=== PATIENT | male | born 1945 | race Caucasian/White ===

== ENCOUNTER 2019-02-15 05:24 | Inpatient (IN) | payer MEDICARE, OTHER ==
[~2019-02-15] VITALS: Ht 177.8 cm; Wt 69.4 kg
[2019-02-15] MEDS ORDERED: ACETAMINOPHEN 500 MG TABLET ONE (05:42)
[2019-02-15] MEDS ORDERED: ACETAMINOPHEN 500 MG TABLET PO ONE (06:00)
[2019-02-15] MEDS ORDERED: SODIUM CHLORIDE FLUSH 10ML SYR IVF ONE (06:30)
[2019-02-15 06:39] LABS: BASOPHILS # (AUTO) 0.02 x10^3/uL (0-0.1); BASOPHILS % (AUTO) 0 % (0-1); EOSINOPHILS % (AUTO) 2 % (1-7); LYMPHOCYTES # (AUTO) 0.72 x10^3/uL (1-3.4); LYMPHOCYTES % (AUTO) 13 % (22-44); MD NO; MEAN CORPUSCULAR HEMOGLOBIN 30.6 pg (27.5-34.5); MEAN CORPUSCULAR HGB CONC 33.3 g/dL (33.2-36.2); MEAN CORPUSCULAR VOLUME 91.8 fL (81-97); MEAN PLATELET VOLUME 7.7 fL (7.4-10.4); MONOCYTES # (AUTO) 0.38 x10^3/uL (0.2-0.8); MONOCYTES % (AUTO) 7 % (2-9); NEUTROPHILS # (AUTO) 4.17 x10^3/uL (1.8-6.8); NEUTROPHILS % (AUTO) 77 % (42-75); PLATELET COUNT 229 x10^3/uL (130-400); RED BLOOD COUNT 3.82 x10^6/uL (4.38-5.82); RED CELL DISTRIBUTION WIDTH 13.7 % (9.4-14.8)
[2019-02-15 06:52] LABS: ALANINE AMINOTRANSFERASE 22 U/L (12-78); ALBUMIN 3.5 g/dL (3.4-5.0); ANION GAP 4 mmol/L (5-15); CALCIUM 8.2 mg/dL (8.5-10.1); CHLORIDE 103 mmol/L (98-107); CREATININE 0.79 mg/dL (0.7-1.3)
[2019-02-15 06:54] LABS: ALKALINE PHOSPHATASE 61 U/L (45-117); BILIRUBIN,TOTAL 0.4 mg/dL (0.2-1.0); TOTAL PROTEIN 6.7 g/dL (6.4-8.2)
--- NOTE | 2019-02-15 07:04 | NUR ---
REC BS REPORT PT RESTING NADN IV ESTABLISHED VSS MONITORED
[2019-02-15] MEDS ORDERED: SODIUM CHLORIDE 0.9% 1,000 ML IV ONE (07:08)
[2019-02-15] MEDS ORDERED: ONDANSETRON 2MG/ML, 2ML IVPush PRN (07:30)
[2019-02-15] MEDS ORDERED: MORPHINE SULFATE 4 MG/ML, 1ML IVPush PRN (07:30)
[2019-02-15] MEDS ORDERED: SODIUM CHLORIDE FLUSH 10ML SYR IVF PRN (07:30)
--- NOTE | 2019-02-15 08:17 | NUR ---
REPORT CALLED TO THE FLOOR
[2019-02-15] MEDS: ENOXAPARIN 40 MG/0.4 ML SQ SCH (08:30)
[2019-02-15] MEDS ORDERED: OXYcodone IR 5MG TABLET PO PRN (08:30)
[2019-02-15] MEDS ORDERED: morphine SULFATE 10 MG/ML, 1ML IVPush PRN (08:30)
[2019-02-15 08:37] LABS: INTERNATIONAL NORMALIZED RATIO 0.99 (0.93-1.1); PROTHROMBIN TIME 10.4 Seconds (9.6-11.5)
[2019-02-15] MEDS: CALCIUM/VITAMIN D3 250-125 TABLET PO SCH ×2 (09:00→21:44)
[2019-02-15] MEDS: SENNA/DOCUSATE TABLET PO SCH (09:00)
[2019-02-15 09:11] VITALS: BP 159/81
[2019-02-15] MEDS: SODIUM CHLORIDE 0.9% 1,000 ML IV SCH ×2 (09:16→22:23)
[2019-02-15 14:00] VITALS: BP 128/68
[2019-02-15 14:07] LABS: MICROSCOPIC NOT IND
[2019-02-15 14:24] LABS: CULTURE INDICATED? NO
[2019-02-15 19:13] VITALS: BP 154/90
[2019-02-16 01:47] VITALS: BP 158/95
[2019-02-16] MEDS: ALENDRONATE 10 MG TABLET PO SCH (06:03)
[2019-02-16] MEDS ORDERED: FENTANYL PF 250 MCG/5ML ONE (07:56)
[2019-02-16 08:07] LABS: BASOPHILS # (AUTO) 0.02 x10^3/uL (0-0.1); BASOPHILS % (AUTO) 0 % (0-1); EOSINOPHILS % (AUTO) 0 % (1-7); LYMPHOCYTES # (AUTO) 0.71 x10^3/uL (1-3.4); LYMPHOCYTES % (AUTO) 10 % (22-44); MD NO; MEAN CORPUSCULAR HEMOGLOBIN 29.6 pg (27.5-34.5); MEAN CORPUSCULAR HGB CONC 32.4 g/dL (33.2-36.2); MEAN CORPUSCULAR VOLUME 91.3 fL (81-97); MEAN PLATELET VOLUME 7.9 fL (7.4-10.4); MONOCYTES # (AUTO) 0.67 x10^3/uL (0.2-0.8); MONOCYTES % (AUTO) 9 % (2-9); NEUTROPHILS # (AUTO) 5.85 x10^3/uL (1.8-6.8); NEUTROPHILS % (AUTO) 81 % (42-75); PLATELET COUNT 185 x10^3/uL (130-400); RED BLOOD COUNT 3.63 x10^6/uL (4.38-5.82); RED CELL DISTRIBUTION WIDTH 13.6 % (9.4-14.8)
[2019-02-16] MEDS ORDERED: ROCURONIUM 10MG/ML,5ML ONE (08:10)
[2019-02-16] MEDS ORDERED: PROPOFOL 10 MG/ML, 20ML ONE (08:10)
[2019-02-16] MEDS ORDERED: CEFAZOLIN 1,000 MG ONE (08:10)
[2019-02-16] MEDS ORDERED: PHENYLEPHRINE 10 MG/ML ONE (08:10)
[2019-02-16] MEDS ORDERED: GLYCOPYRROLATE 0.2MG/1ML, 5ML ONE (08:10)
[2019-02-16] MEDS ORDERED: NEOSTIGMINE 1 MG/ML, 10ML ONE (08:10)
[2019-02-16 08:18] LABS: CHLORIDE 105 mmol/L (98-107)
[2019-02-16 08:20] LABS: ANION GAP 5 mmol/L (5-15); CREATININE 0.68 mg/dL (0.7-1.3)
[2019-02-16] MEDS ORDERED: PROMETHAZINE 12.5 MG SUPP PR PRN (08:30)
[2019-02-16] MEDS ORDERED: MORPHINE SULFATE 4 MG/ML, 1ML IVPush PRN (08:30)
[2019-02-16] MEDS ORDERED: PROMETHAZINE 25 MG SUPP PR PRN (08:30)
[2019-02-16] MEDS ORDERED: MEPERIDINE/PF 25MG/0.5ML IVPush PRN (08:30)
[2019-02-16] MEDS ORDERED: hydrALAzine 20 MG/ML, 1ML IV PRN (08:30)
[2019-02-16] MEDS ORDERED: OXYcodone 5 MG/5 ML ORAL.SOL UDC PO PRN (08:30)
[2019-02-16] MEDS ORDERED: ONDANSETRON ODT 8 MG PO PRN (08:30)
[2019-02-16] MEDS ORDERED: PROMETHAZINE 25 MG/ML, 1ML IM PRN ×2 (08:30)
[2019-02-16] MEDS: ENOXAPARIN 40 MG/0.4 ML SQ SCH (08:30)
[2019-02-16] MEDS ORDERED: PROMETHAZINE 25 MG/ML, 1ML IV PRN (08:30)
[2019-02-16] MEDS ORDERED: HYDROmorphone 2 MG/ML, 1ML IVPush PRN ×2 (08:30→11:00)
[2019-02-16] MEDS ORDERED: LABETALOL 5MG/ML, 20ML IV PRN (08:30)
[2019-02-16] MEDS ORDERED: ONDANSETRON 2MG/ML, 2ML IV PRN ×2 (08:30→11:00)
[2019-02-16] MEDS: CALCIUM/VITAMIN D3 250-125 TABLET PO SCH ×2 (09:00→20:41)
[2019-02-16] MEDS: SENNA/DOCUSATE TABLET PO SCH (09:00)
[2019-02-16] MEDS ORDERED: ACETAMINOPHEN 650 MG/20.3 ML UDC ONE (09:12)
[2019-02-16] MEDS ORDERED: FENTANYL PF 100 MCG/2ML ONE (09:12)
[2019-02-16] MEDS ORDERED: OXYcodone 5 MG/5 ML ORAL.SOL UDC ONE (09:12)
[2019-02-16] MEDS: ACETAMINOPHEN 325 MG TABLET PO PRN ×2 (09:15→11:45)
[2019-02-16] MEDS: FENTANYL PF 100 MCG/2ML IV PRN ×3 (09:18→09:31)
[2019-02-16 10:14] VITALS: BP 138/76
[2019-02-16] MEDS ORDERED: HYDROcodone/APAP 5/325 TABLET PO PRN (11:00)
[2019-02-16] MEDS ORDERED: OXYcodone/APAP 5/325MG TABLET PO PRN (11:00)
[2019-02-16] MEDS: KETOROLAC 30 MG/1 ML IV SCH ×2 (11:45→20:41)
[2019-02-16] MEDS: CARVEDILOL 3.125 MG TABLET PO SCH ×2 (11:45→17:58)
[2019-02-16] MEDS ORDERED: morphine SULFATE 10 MG/ML, 1ML IVPush PRN (12:00)
[2019-02-16] MEDS: SODIUM CHLORIDE 0.9% 1,000 ML IV SCH (13:50)
[2019-02-16 14:04] VITALS: BP 134/70
[2019-02-16] MEDS: CEFAZOLIN PMX 1GM/50ML 50 ML IVPB SCH (17:03)
[2019-02-16 18:59] VITALS: BP 159/83
[2019-02-16] MEDS: DOCUSATE 100 MG CAPSULE PO SCH (20:41)
[2019-02-16] MEDS: SODIUM CHLORIDE FLUSH 10ML SYR IVF SCH (20:42)
[2019-02-17 00:04] VITALS: BP 141/75
[2019-02-17] MEDS: CEFAZOLIN PMX 1GM/50ML 50 ML IVPB SCH (00:37)
[2019-02-17 04:14] VITALS: BP 153/75
[2019-02-17] MEDS: KETOROLAC 30 MG/1 ML IV SCH (04:37)
[2019-02-17 05:20] LABS: BASOPHILS % (AUTO) 0 % (0-1); EOSINOPHILS # (AUTO) 0.01 x10^3/uL (0-0.4); EOSINOPHILS % (AUTO) 0 % (1-7); LYMPHOCYTES # (AUTO) 0.56 x10^3/uL (1-3.4); LYMPHOCYTES % (AUTO) 8 % (22-44); MD NO; MEAN CORPUSCULAR HGB CONC 32.8 g/dL (33.2-36.2); MEAN CORPUSCULAR VOLUME 91.6 fL (81-97); MEAN PLATELET VOLUME 8.4 fL (7.4-10.4); MONOCYTES # (AUTO) 0.94 x10^3/uL (0.2-0.8); MONOCYTES % (AUTO) 13 % (2-9); NEUTROPHILS # (AUTO) 5.94 x10^3/uL (1.8-6.8); NEUTROPHILS % (AUTO) 80 % (42-75); PLATELET COUNT 180 x10^3/uL (130-400); RED BLOOD COUNT 3.17 x10^6/uL (4.38-5.82); RED CELL DISTRIBUTION WIDTH 13.5 % (9.4-14.8)
[2019-02-17 05:28] LABS: ANION GAP 3 mmol/L (5-15); CALCIUM 7.9 mg/dL (8.5-10.1); CHLORIDE 104 mmol/L (98-107)
[2019-02-17 05:29] LABS: CREATININE 1.14 mg/dL (0.7-1.3)
[2019-02-17] MEDS: ALENDRONATE 10 MG TABLET PO SCH (06:28)
[2019-02-17] MEDS: ENOXAPARIN 40 MG/0.4 ML SQ SCH (06:28)
[2019-02-17] MEDS: CARVEDILOL 3.125 MG TABLET PO SCH ×2 (06:28→17:44)
[2019-02-17] MEDS: SODIUM CHLORIDE 0.9% 1,000 ML IV SCH (06:29)
[2019-02-17 07:08] VITALS: BP 122/71
[2019-02-17] MEDS: SODIUM CHLORIDE FLUSH 10ML SYR IVF SCH ×2 (09:21→21:35)
[2019-02-17] MEDS: CALCIUM/VITAMIN D3 250-125 TABLET PO SCH ×2 (09:22→21:35)
[2019-02-17] MEDS: SENNA/DOCUSATE TABLET PO SCH (09:22)
[2019-02-17] MEDS: DOCUSATE 100 MG CAPSULE PO SCH ×2 (09:22→21:35)
[2019-02-17 12:07] VITALS: BP 129/66
[2019-02-17 19:20] VITALS: BP 161/77
[2019-02-17 20:26] VITALS: BP 165/78
[2019-02-18 00:18] VITALS: BP 142/73
[2019-02-18 03:37] VITALS: BP 151/68
[2019-02-18] MEDS: ALENDRONATE 10 MG TABLET PO SCH (05:30)
[2019-02-18] MEDS: ENOXAPARIN 40 MG/0.4 ML SQ SCH (05:31)
[2019-02-18] MEDS: CARVEDILOL 3.125 MG TABLET PO SCH ×2 (05:31→18:14)
[2019-02-18 06:53] VITALS: BP 124/67
[2019-02-18] MEDS: CALCIUM/VITAMIN D3 250-125 TABLET PO SCH ×2 (09:49→21:35)
[2019-02-18] MEDS: ASPIRIN 81 MG TABLET CHEW PO SCH (09:49)
[2019-02-18] MEDS: SENNA/DOCUSATE TABLET PO SCH (09:49)
[2019-02-18] MEDS: DOCUSATE 100 MG CAPSULE PO SCH ×2 (09:49→21:00)
[2019-02-18] MEDS: SODIUM CHLORIDE FLUSH 10ML SYR IVF SCH ×2 (09:50→21:00)
[2019-02-18 13:08] VITALS: BP 109/65
[2019-02-18] MEDS: ACETAMINOPHEN 325 MG TABLET PO PRN (15:32)
[2019-02-18 18:13] VITALS: BP 132/65
[2019-02-18 19:16] VITALS: BP 110/55
[2019-02-18] MEDS: MAGNESIUM HYDROXIDE 8%, 30ML UDC PO SCH (21:00)
[2019-02-19 01:17] VITALS: BP 141/70
[2019-02-19] MEDS: ALENDRONATE 10 MG TABLET PO SCH (06:13)
[2019-02-19] MEDS: ENOXAPARIN 40 MG/0.4 ML SQ SCH (06:14)
[2019-02-19] MEDS: CARVEDILOL 3.125 MG TABLET PO SCH ×2 (06:14→18:09)
[2019-02-19 06:52] VITALS: BP 165/71
[2019-02-19] MEDS: SODIUM CHLORIDE FLUSH 10ML SYR IVF SCH ×2 (07:42→21:18)
[2019-02-19] MEDS: CALCIUM/VITAMIN D3 250-125 TABLET PO SCH ×2 (07:42→21:18)
[2019-02-19] MEDS: SENNA/DOCUSATE TABLET PO SCH (07:42)
[2019-02-19] MEDS: ASPIRIN 81 MG TABLET CHEW PO SCH (07:42)
[2019-02-19] MEDS: DOCUSATE 100 MG CAPSULE PO SCH ×2 (07:42→21:18)
[2019-02-19 13:19] VITALS: BP 118/52
[2019-02-19 18:23] VITALS: BP 126/68
[2019-02-19] MEDS: MAGNESIUM HYDROXIDE 8%, 30ML UDC PO SCH ×2 (21:18→21:30)
[2019-02-20 01:15] VITALS: BP 135/71
[2019-02-20] MEDS: CARVEDILOL 3.125 MG TABLET PO SCH ×2 (06:52→17:58)
[2019-02-20] MEDS: ALENDRONATE 10 MG TABLET PO SCH (06:52)
[2019-02-20] MEDS: ENOXAPARIN 40 MG/0.4 ML SQ SCH (06:52)
[2019-02-20 06:55] VITALS: BP 104/62
[2019-02-20] MEDS: DOCUSATE 100 MG CAPSULE PO SCH ×2 (09:23→21:12)
[2019-02-20] MEDS: ASPIRIN 81 MG TABLET CHEW PO SCH (09:23)
[2019-02-20] MEDS: CALCIUM/VITAMIN D3 250-125 TABLET PO SCH ×2 (09:23→21:12)
[2019-02-20] MEDS: SENNA/DOCUSATE TABLET PO SCH (09:27)
[2019-02-20] MEDS: SODIUM CHLORIDE FLUSH 10ML SYR IVF SCH ×2 (09:27→21:13)
--- NOTE | 2019-02-20 10:30 | NUR ---
NURSING ACTIVITY SHEET Reviewed the following activity sheet with patient and RN. 1. Up in chair at least 3x's a day for meals. 2. Seated and Supine B LE strengthening exercises as per exercise sheet including the following exercises: seated: marching, knee extension, ankle pumps, glut sets supine/reclined: ankle pumps, quad sets, glut sets, heel slides 3. Ambulate to and from restroom with nursing assist. Addendum: 02/20/19 at 1605 by RHODA ROSAS PTA Amended: Links added.
[2019-02-20 12:27] VITALS: BP 107/58
[2019-02-20 18:47] VITALS: BP 106/52
[2019-02-20] MEDS: MAGNESIUM HYDROXIDE 8%, 30ML UDC PO SCH (21:12)
[2019-02-21 02:14] VITALS: BP 134/66
[2019-02-21 05:50] LABS: CREATININE 1.08 mg/dL (0.7-1.3)
[2019-02-21] MEDS: ALENDRONATE 10 MG TABLET PO SCH (06:24)
[2019-02-21] MEDS: CARVEDILOL 3.125 MG TABLET PO SCH ×2 (06:24→17:33)
[2019-02-21] MEDS: ENOXAPARIN 40 MG/0.4 ML SQ SCH (06:25)
[2019-02-21 07:40] VITALS: BP 129/72
[2019-02-21] MEDS: DOCUSATE 100 MG CAPSULE PO SCH ×2 (08:03→21:43)
[2019-02-21] MEDS: CALCIUM/VITAMIN D3 250-125 TABLET PO SCH ×2 (08:04→21:43)
[2019-02-21] MEDS: ASPIRIN 81 MG TABLET CHEW PO SCH (08:04)
[2019-02-21] MEDS: SENNA/DOCUSATE TABLET PO SCH (08:04)
[2019-02-21] MEDS: SODIUM CHLORIDE FLUSH 10ML SYR IVF SCH ×2 (08:08→21:43)
[2019-02-21 14:00] VITALS: BP 112/68
[2019-02-21 19:39] VITALS: BP 123/72
[2019-02-21] MEDS: MAGNESIUM HYDROXIDE 8%, 30ML UDC PO SCH (21:43)
[2019-02-22 00:55] VITALS: BP 136/80
[2019-02-22] MEDS: CARVEDILOL 3.125 MG TABLET PO SCH ×2 (06:35→18:00)
[2019-02-22] MEDS: ALENDRONATE 10 MG TABLET PO SCH (06:35)
[2019-02-22] MEDS: ENOXAPARIN 40 MG/0.4 ML SQ SCH (06:35)
[2019-02-22 07:32] VITALS: BP 100/58
[2019-02-22] MEDS: SENNA/DOCUSATE TABLET PO SCH (09:58)
[2019-02-22] MEDS: CALCIUM/VITAMIN D3 250-125 TABLET PO SCH ×2 (09:58→19:30)
[2019-02-22] MEDS: ASPIRIN 81 MG TABLET CHEW PO SCH (09:58)
[2019-02-22] MEDS: SODIUM CHLORIDE FLUSH 10ML SYR IVF SCH ×2 (09:58→19:30)
[2019-02-22] MEDS: DOCUSATE 100 MG CAPSULE PO SCH ×2 (09:58→19:30)
[2019-02-22 14:50] VITALS: BP 99/47
[2019-02-22 18:36] VITALS: BP 97/51
[2019-02-22] MEDS: MAGNESIUM HYDROXIDE 8%, 30ML UDC PO SCH ×2 (19:30→19:32)
[2019-02-23 04:53] VITALS: BP 119/67
[2019-02-23] MEDS: CARVEDILOL 3.125 MG TABLET PO SCH ×2 (05:07→17:57)
[2019-02-23] MEDS: ALENDRONATE 10 MG TABLET PO SCH (05:07)
[2019-02-23] MEDS: ENOXAPARIN 40 MG/0.4 ML SQ SCH (05:07)
[2019-02-23 08:01] VITALS: BP 120/69
[2019-02-23] MEDS ORDERED: HALOPERIDOL 5 MG/ML IM PRN (08:30)
[2019-02-23] MEDS ORDERED: LORazepam 2 MG/ML, 1ML ONE (08:37)
[2019-02-23] MEDS: DOCUSATE 100 MG CAPSULE PO SCH ×2 (08:41→22:38)
[2019-02-23] MEDS: SODIUM CHLORIDE FLUSH 10ML SYR IVF SCH ×2 (08:41→22:38)
[2019-02-23] MEDS: LORazepam 2 MG/ML, 1ML IVPush PRN (08:41)
[2019-02-23] MEDS: ASPIRIN 81 MG TABLET CHEW PO SCH (08:41)
[2019-02-23] MEDS: SENNA/DOCUSATE TABLET PO SCH (08:41)
[2019-02-23] MEDS: CALCIUM/VITAMIN D3 250-125 TABLET PO SCH ×2 (08:41→22:38)
[2019-02-23 10:35] LABS: BASOPHILS # (AUTO) 0.03 x10^3/uL (0-0.1); BASOPHILS % (AUTO) 1 % (0-1); EOSINOPHILS # (AUTO) 0.33 x10^3/uL (0-0.4); EOSINOPHILS % (AUTO) 5 % (1-7); LYMPHOCYTES # (AUTO) 0.58 x10^3/uL (1-3.4); LYMPHOCYTES % (AUTO) 10 % (22-44); MD NO; MEAN CORPUSCULAR HEMOGLOBIN 30.8 pg (27.5-34.5); MEAN CORPUSCULAR HGB CONC 33.6 g/dL (33.2-36.2); MEAN CORPUSCULAR VOLUME 91.5 fL (81-97); MEAN PLATELET VOLUME 7.9 fL (7.4-10.4); MONOCYTES # (AUTO) 0.75 x10^3/uL (0.2-0.8); MONOCYTES % (AUTO) 12 % (2-9); NEUTROPHILS # (AUTO) 4.45 x10^3/uL (1.8-6.8); NEUTROPHILS % (AUTO) 72 % (42-75); PLATELET COUNT 350 x10^3/uL (130-400); RED CELL DISTRIBUTION WIDTH 13.8 % (9.4-14.8)
[2019-02-23 10:44] LABS: CHLORIDE 102 mmol/L (98-107)
[2019-02-23 10:52] LABS: ALANINE AMINOTRANSFERASE 27 U/L (12-78); ALBUMIN 2.9 g/dL (3.4-5.0); ALKALINE PHOSPHATASE 59 U/L (45-117); ANION GAP 3 mmol/L (5-15); BILIRUBIN,TOTAL 0.6 mg/dL (0.2-1.0); CALCIUM 8.1 mg/dL (8.5-10.1); CREATININE 1.47 mg/dL (0.7-1.3); TOTAL PROTEIN 6.3 g/dL (6.4-8.2)
[2019-02-23 13:33] VITALS: BP 118/70
[2019-02-23] MEDS: SODIUM CHLORIDE 0.9% 1,000 ML IV SCH (14:00)
[2019-02-23] MEDS: MAGNESIUM HYDROXIDE 8%, 30ML UDC PO SCH ×2 (21:00→22:38)
[2019-02-23 22:34] VITALS: BP 138/66
[2019-02-24 00:17] VITALS: BP 129/67
[2019-02-24 05:28] LABS: ALBUMIN 2.8 g/dL (3.4-5.0); ANION GAP 5 mmol/L (5-15); CALCIUM 8.1 mg/dL (8.5-10.1); CHLORIDE 103 mmol/L (98-107)
[2019-02-24 05:31] LABS: ALANINE AMINOTRANSFERASE 22 U/L (12-78); ALKALINE PHOSPHATASE 55 U/L (45-117); BILIRUBIN,TOTAL 0.4 mg/dL (0.2-1.0); TOTAL PROTEIN 5.8 g/dL (6.4-8.2)
[2019-02-24] MEDS: CARVEDILOL 3.125 MG TABLET PO SCH ×3 (06:00→18:56)
[2019-02-24] MEDS: ENOXAPARIN 40 MG/0.4 ML SQ SCH (06:07)
[2019-02-24] MEDS: LORazepam 2 MG/ML, 1ML IVPush PRN (06:08)
[2019-02-24] MEDS: ALENDRONATE 10 MG TABLET PO SCH (06:16)
[2019-02-24 07:07] VITALS: BP 114/70
[2019-02-24] MEDS: SODIUM CHLORIDE FLUSH 10ML SYR IVF SCH ×2 (09:48→20:37)
[2019-02-24] MEDS: DOCUSATE 100 MG CAPSULE PO SCH ×2 (09:48→20:36)
[2019-02-24] MEDS: ASPIRIN 81 MG TABLET CHEW PO SCH (09:48)
[2019-02-24] MEDS: SENNA/DOCUSATE TABLET PO SCH (09:48)
[2019-02-24] MEDS: CALCIUM/VITAMIN D3 250-125 TABLET PO SCH ×2 (09:49→20:36)
[2019-02-24] MEDS: SODIUM CHLORIDE 0.9% 1,000 ML IV SCH ×3 (10:00→20:00)
[2019-02-24 15:47] VITALS: BP 125/68
[2019-02-24 15:48] VITALS: BP 125/71
[2019-02-24 18:54] VITALS: BP 154/62
[2019-02-24 20:10] VITALS: BP 161/70
[2019-02-24] MEDS: MAGNESIUM HYDROXIDE 8%, 30ML UDC PO SCH (20:36)
[2019-02-25 01:50] VITALS: BP 148/84
[2019-02-25] MEDS: CARVEDILOL 3.125 MG TABLET PO SCH ×2 (06:00→18:00)
[2019-02-25] MEDS: SODIUM CHLORIDE 0.9% 1,000 ML IV SCH ×2 (06:00→16:00)
[2019-02-25] MEDS: ALENDRONATE 10 MG TABLET PO SCH (06:41)
[2019-02-25] MEDS: ENOXAPARIN 40 MG/0.4 ML SQ SCH (06:42)
[2019-02-25 08:37] VITALS: BP 125/71
[2019-02-25] MEDS: CALCIUM/VITAMIN D3 250-125 TABLET PO SCH ×2 (10:28→21:14)
[2019-02-25] MEDS: SODIUM CHLORIDE FLUSH 10ML SYR IVF SCH ×2 (10:28→21:14)
[2019-02-25] MEDS: DOCUSATE 100 MG CAPSULE PO SCH ×2 (10:28→21:14)
[2019-02-25] MEDS: ASPIRIN 81 MG TABLET CHEW PO SCH (10:28)
[2019-02-25] MEDS: SENNA/DOCUSATE TABLET PO SCH (10:28)
[2019-02-25 13:45] VITALS: BP 126/71
[2019-02-25] MEDS: MAGNESIUM HYDROXIDE 8%, 30ML UDC PO SCH (21:14)
[2019-02-25 21:19] VITALS: BP 131/66
[2019-02-26] MEDS: SODIUM CHLORIDE 0.9% 1,000 ML IV SCH ×3 (02:00→20:35)
[2019-02-26 04:03] VITALS: BP 137/71
[2019-02-26] MEDS: CARVEDILOL 3.125 MG TABLET PO SCH ×2 (06:00→16:22)
[2019-02-26] MEDS: ALENDRONATE 10 MG TABLET PO SCH (06:39)
[2019-02-26] MEDS: ENOXAPARIN 40 MG/0.4 ML SQ SCH (06:39)
[2019-02-26] MEDS: SODIUM CHLORIDE FLUSH 10ML SYR IVF SCH ×2 (09:00→20:35)
[2019-02-26] MEDS: ASPIRIN 81 MG TABLET CHEW PO SCH (09:39)
[2019-02-26] MEDS: SENNA/DOCUSATE TABLET PO SCH (09:40)
[2019-02-26] MEDS: CALCIUM/VITAMIN D3 250-125 TABLET PO SCH ×2 (09:40→20:34)
[2019-02-26] MEDS: DOCUSATE 100 MG CAPSULE PO SCH ×2 (09:41→20:34)
[2019-02-26] MEDS: MAGNESIUM HYDROXIDE 8%, 30ML UDC PO SCH (20:35)
[2019-02-27 01:53] VITALS: BP 148/65
[2019-02-27] MEDS: CARVEDILOL 3.125 MG TABLET PO SCH ×2 (06:00→17:25)
[2019-02-27] MEDS: ENOXAPARIN 40 MG/0.4 ML SQ SCH (06:39)
[2019-02-27] MEDS: ALENDRONATE 10 MG TABLET PO SCH (06:39)
[2019-02-27] MEDS: SODIUM CHLORIDE 0.9% 1,000 ML IV SCH ×3 (08:00→19:47)
[2019-02-27] MEDS: SODIUM CHLORIDE FLUSH 10ML SYR IVF SCH ×2 (09:00→21:56)
[2019-02-27] MEDS: ASPIRIN 81 MG TABLET CHEW PO SCH (09:02)
[2019-02-27] MEDS: DOCUSATE 100 MG CAPSULE PO SCH ×2 (09:03→21:00)
[2019-02-27] MEDS: SENNA/DOCUSATE TABLET PO SCH (09:04)
[2019-02-27] MEDS: CALCIUM/VITAMIN D3 250-125 TABLET PO SCH ×2 (09:04→21:55)
[2019-02-27 09:10] VITALS: BP 121/59
[2019-02-27] MEDS: MAGNESIUM HYDROXIDE 8%, 30ML UDC PO SCH (21:00)
[2019-02-28] MEDS: CARVEDILOL 3.125 MG TABLET PO SCH ×2 (06:00→17:57)
[2019-02-28] MEDS: ENOXAPARIN 40 MG/0.4 ML SQ SCH (06:00)
[2019-02-28] MEDS: ALENDRONATE 10 MG TABLET PO SCH (06:16)
[2019-02-28] MEDS: DOCUSATE 100 MG CAPSULE PO SCH ×2 (08:51→20:54)
[2019-02-28] MEDS: CALCIUM/VITAMIN D3 250-125 TABLET PO SCH ×2 (08:51→21:40)
[2019-02-28] MEDS: SENNA/DOCUSATE TABLET PO SCH (08:51)
[2019-02-28] MEDS: SODIUM CHLORIDE FLUSH 10ML SYR IVF SCH ×2 (08:51→20:55)
[2019-02-28] MEDS: ASPIRIN 81 MG TABLET CHEW PO SCH (08:51)
[2019-02-28] MEDS: SODIUM CHLORIDE 0.9% 1,000 ML IV SCH ×2 (14:14→20:54)
[2019-02-28] MEDS ORDERED: LORazepam 2 MG/ML, 1ML IM PRN (20:30)
[2019-02-28] MEDS: MAGNESIUM HYDROXIDE 8%, 30ML UDC PO SCH (20:55)
[2019-02-28 21:16] VITALS: BP 122/61
[2019-03-01] MEDS: CARVEDILOL 3.125 MG TABLET PO SCH ×3 (06:00→19:17)
[2019-03-01] MEDS: ENOXAPARIN 40 MG/0.4 ML SQ SCH (06:00)
[2019-03-01] MEDS: SODIUM CHLORIDE FLUSH 10ML SYR IVF SCH ×2 (06:01→21:00)
[2019-03-01] MEDS: ALENDRONATE 10 MG TABLET PO SCH (06:01)
[2019-03-01 07:52] VITALS: BP 128/67
[2019-03-01 08:30] LABS: ALBUMIN 3.3 g/dL (3.4-5.0); ANION GAP 4 mmol/L (5-15); CALCIUM 8.2 mg/dL (8.5-10.1); CHLORIDE 106 mmol/L (98-107); CREATININE 0.95 mg/dL (0.7-1.3)
[2019-03-01] MEDS: ASPIRIN 81 MG TABLET CHEW PO SCH (08:45)
[2019-03-01] MEDS: DOCUSATE 100 MG CAPSULE PO SCH ×2 (08:45→21:00)
[2019-03-01] MEDS: CALCIUM/VITAMIN D3 250-125 TABLET PO SCH ×2 (08:46→21:00)
[2019-03-01] MEDS: SENNA/DOCUSATE TABLET PO SCH (08:46)
[2019-03-01] MEDS: SODIUM CHLORIDE 0.9% 1,000 ML IV SCH ×2 (10:00→20:00)
[2019-03-01 10:15] LABS: BASOPHILS # (AUTO) 0.01 x10^3/uL (0-0.1); BASOPHILS % (AUTO) 0 % (0-1); EOSINOPHILS % (AUTO) 3 % (1-7); LYMPHOCYTES # (AUTO) 0.87 x10^3/uL (1-3.4); LYMPHOCYTES % (AUTO) 13 % (22-44); MD NO; MEAN CORPUSCULAR HEMOGLOBIN 29.3 pg (27.5-34.5); MEAN CORPUSCULAR HGB CONC 31.8 g/dL (33.2-36.2); MEAN CORPUSCULAR VOLUME 92.1 fL (81-97); MEAN PLATELET VOLUME 7.9 fL (7.4-10.4); MONOCYTES % (AUTO) 8 % (2-9); NEUTROPHILS # (AUTO) 5.05 x10^3/uL (1.8-6.8); NEUTROPHILS % (AUTO) 76 % (42-75); PLATELET COUNT 431 x10^3/uL (130-400); RED BLOOD COUNT 3.08 x10^6/uL (4.38-5.82); RED CELL DISTRIBUTION WIDTH 13.9 % (9.4-14.8)
[2019-03-01 14:03] VITALS: BP 125/80
[2019-03-01] MEDS: MAGNESIUM HYDROXIDE 8%, 30ML UDC PO SCH (19:17)
[2019-03-02 00:15] VITALS: BP 143/74
[2019-03-02] MEDS: ENOXAPARIN 40 MG/0.4 ML SQ SCH (04:45)
[2019-03-02] MEDS: SODIUM CHLORIDE 0.9% 1,000 ML IV SCH ×3 (04:45→20:40)
[2019-03-02] MEDS: ALENDRONATE 10 MG TABLET PO SCH (04:46)
[2019-03-02] MEDS: SODIUM CHLORIDE FLUSH 10ML SYR IVF SCH ×2 (07:29→20:39)
[2019-03-02] MEDS: CALCIUM/VITAMIN D3 250-125 TABLET PO SCH ×2 (09:09→20:39)
[2019-03-02] MEDS: DOCUSATE 100 MG CAPSULE PO SCH ×2 (09:09→20:39)
[2019-03-02] MEDS: SENNA/DOCUSATE TABLET PO SCH (09:09)
[2019-03-02] MEDS: ASPIRIN 81 MG TABLET CHEW PO SCH (09:09)
[2019-03-02 13:29] VITALS: BP 134/75
[2019-03-02] MEDS: CARVEDILOL 3.125 MG TABLET PO SCH ×2 (17:28→19:07)
[2019-03-02 19:44] VITALS: BP 139/73
[2019-03-02] MEDS: MAGNESIUM HYDROXIDE 8%, 30ML UDC PO SCH (20:39)
[2019-03-03 01:52] VITALS: BP 125/73
[2019-03-03] MEDS: ALENDRONATE 10 MG TABLET PO SCH (04:31)
[2019-03-03] MEDS: ENOXAPARIN 40 MG/0.4 ML SQ SCH (04:34)
[2019-03-03 07:29] VITALS: BP 115/75
[2019-03-03] MEDS: SODIUM CHLORIDE 0.9% 1,000 ML IV SCH ×2 (08:30→21:53)
[2019-03-03] MEDS: SODIUM CHLORIDE FLUSH 10ML SYR IVF SCH ×2 (09:00→21:00)
[2019-03-03] MEDS: ASPIRIN 81 MG TABLET CHEW PO SCH (09:08)
[2019-03-03] MEDS: SENNA/DOCUSATE TABLET PO SCH (09:08)
[2019-03-03] MEDS: CALCIUM/VITAMIN D3 250-125 TABLET PO SCH ×2 (09:08→20:07)
[2019-03-03] MEDS: DOCUSATE 100 MG CAPSULE PO SCH ×2 (09:08→20:07)
[2019-03-03 14:16] VITALS: BP 115/68
[2019-03-03] MEDS: CARVEDILOL 3.125 MG TABLET PO SCH (17:45)
[2019-03-03 18:33] VITALS: BP 126/69
[2019-03-03] MEDS: MAGNESIUM HYDROXIDE 8%, 30ML UDC PO SCH (20:07)
[2019-03-04 01:11] VITALS: BP 154/69
[2019-03-04] MEDS: CARVEDILOL 3.125 MG TABLET PO SCH ×3 (05:16→20:37)
[2019-03-04] MEDS: ENOXAPARIN 40 MG/0.4 ML SQ SCH (05:16)
[2019-03-04] MEDS: ALENDRONATE 10 MG TABLET PO SCH (05:16)
[2019-03-04] MEDS: SODIUM CHLORIDE 0.9% 1,000 ML IV SCH ×3 (08:33→20:21)
[2019-03-04] MEDS: SODIUM CHLORIDE FLUSH 10ML SYR IVF SCH ×2 (08:33→20:22)
[2019-03-04] MEDS: ASPIRIN 81 MG TABLET CHEW PO SCH (08:33)
[2019-03-04] MEDS: DOCUSATE 100 MG CAPSULE PO SCH ×2 (08:34→20:37)
[2019-03-04] MEDS: SENNA/DOCUSATE TABLET PO SCH (08:34)
[2019-03-04] MEDS: CALCIUM/VITAMIN D3 250-125 TABLET PO SCH ×2 (08:34→20:31)
[2019-03-04 08:44] VITALS: BP 127/81
[2019-03-04 15:11] VITALS: BP 137/73
[2019-03-04 18:33] VITALS: BP_SYST 105; BP_SYST 153; BP_DIAS 67; BP_DIAS 80
[2019-03-04] MEDS: MAGNESIUM HYDROXIDE 8%, 30ML UDC PO SCH (20:37)
[2019-03-05 01:20] VITALS: BP 145/76
[2019-03-05] MEDS: ALENDRONATE 10 MG TABLET PO SCH (05:24)
[2019-03-05] MEDS: ENOXAPARIN 40 MG/0.4 ML SQ SCH (05:24)
[2019-03-05] MEDS: CARVEDILOL 3.125 MG TABLET PO SCH ×2 (05:24→17:45)
[2019-03-05] MEDS: SODIUM CHLORIDE FLUSH 10ML SYR IVF SCH ×2 (09:00→21:00)
[2019-03-05] MEDS: ASPIRIN 81 MG TABLET CHEW PO SCH (09:00)
[2019-03-05] MEDS: DOCUSATE 100 MG CAPSULE PO SCH ×2 (09:00→21:00)
[2019-03-05] MEDS: CALCIUM/VITAMIN D3 250-125 TABLET PO SCH ×2 (09:00→21:00)
[2019-03-05] MEDS: SENNA/DOCUSATE TABLET PO SCH (09:14)
[2019-03-05] MEDS: SODIUM CHLORIDE 0.9% 1,000 ML IV SCH (14:00)
[2019-03-05 14:36] VITALS: BP 139/81
[2019-03-05] MEDS: MAGNESIUM HYDROXIDE 8%, 30ML UDC PO SCH (21:00)
[2019-03-06 06:13] VITALS: BP 123/75
[2019-03-06] MEDS: CARVEDILOL 3.125 MG TABLET PO SCH (06:15)
[2019-03-06] MEDS: ALENDRONATE 10 MG TABLET PO SCH (06:15)
[2019-03-06] MEDS: ENOXAPARIN 40 MG/0.4 ML SQ SCH (06:15)
[2019-03-06] MEDS ORDERED: LORazepam 1MG TABLET PO ONE (08:00)
[2019-03-06] MEDS: ASPIRIN 81 MG TABLET CHEW PO SCH (09:00)
[2019-03-06] MEDS: SENNA/DOCUSATE TABLET PO SCH (09:00)
[2019-03-06] MEDS: DOCUSATE 100 MG CAPSULE PO SCH (09:00)
[2019-03-06] MEDS: SODIUM CHLORIDE FLUSH 10ML SYR IVF SCH (09:00)
[2019-03-06] MEDS: CALCIUM/VITAMIN D3 250-125 TABLET PO SCH (09:00)
[2019-03-06] MEDS: SODIUM CHLORIDE 0.9% 1,000 ML IV SCH ×2 (10:00)
== END 2019-03-06 13:45 | disposition left against medical advice (07) | DRG 481 ==
LOC: ED 07:29 → 3NW 08:47 → 4NOR 02-16 10:57
PROVIDERS: ADMIT Internal Medicine; ATTEND Internal Medicine
PROC: 0QS736Z Reposition Left Upper Femur with Intramedullary Internal Fixation Device, Percutaneous Approach (ICD-10-PCS; principal; 2019-02-16 17:00)
DX: S72.142A Displaced intertrochanteric fracture of left femur, initial encounter for closed fracture (principal); N17.9 Acute kidney failure, unspecified; Z53.21 Procedure and treatment not carried out due to patient leaving prior to being seen by health care provider; I10 Essential (primary) hypertension; K59.00 Constipation, unspecified; W18.39XA Other fall on same level, initial encounter; Y93.89 Activity, other specified; Y92.89 Other specified places as the place of occurrence of the external cause; Y99.8 Other external cause status; N50.89 Other specified disorders of the male genital organs; Z59.0 Homelessness; Z63.8 Other specified problems related to primary support group; Z80.9 Family history of malignant neoplasm, unspecified; Z87.891 Personal history of nicotine dependence
CPT/HCPCS: 36415; 73501; 73502; 76000; 99285; J3490; 71045; 80048; 80053; 81003; 82040; 82565; 85025; 85610; 93005; C1713; G0378; J0690; J1650; J1885; J2704; J2710; J3010; J1630; J2060; J2370; J7030